=== PATIENT | female | born 1960 | race Caucasian/White ===

== ENCOUNTER → 2017-03-11 | Outpatient (CLI) | payer MEDICARE ==
[~2017-03-11] MED LIST: ADVIL; ALBUTEROL17 GM INH; ALEVE220 M1 PO; BENADRYL PO; CELEBREX PO; DOXEPIN HCL25 MG; FLEXERIL PO; FLONASE; FLONASE 0.05% N16 G1; FLONASE16 GM; IMIPRAM HCL PO; LITE COAT ASPI325 M1 PO; LITHIUM PO; LORTAB 10-5001 EACH PO; METFORMIN HCL500 M2 PO; METOPROLOL SUCC50 MG; METOPROLOL TAR25 MG PO; MOBIC PO; OMEPRAZOLE40 M1 PO; OMEPRAZOLE40 MG PO; PHENERGAN12.5 MG PO; POTASSIUM CHLO10 MEQ PO; PROMETHAZINE12.5 MG PO; REGLAN10 MG PO; SUMATRIPTAN SU100 MG PO; SYNTHROID PO; SYNTHROID137 MCG PO; TIZANIDINE HCL2 MG PO; TRAMADOL HCL50 M2; ULTRAM PO; VITAMIN B650 MG PO; VITAMIN E1000 UNI1 PO; ZANAFLEX
--- NOTE | ~2017-03-11 | US128 ---
[id number] [facility] [address]. [place], [place] [address] [id number] O MR#: [id number] Acc #: [id number] NAME: SONYA PUGH : 1960 SEX: F STUDY DATE/TIME: 03/11/2017 13:24 UNIT: CGUS ROOM: STUDY DESCRIPTION: Thyroid Attending Physician: Sb Barber Jr., M.D. Referring Physician: Sb Barber Jr., M.D. Ordering Physician: Sb Barber Jr., M.D. Primary Care Physician: Sb Barber Jr., M.D. MEDICAL IMAGING REPORT This report is preliminary unless electronic signature is present EXAM Thyroid ultrasound. DATE OF EXAM 03/11/2017 INDICATIONS Palpable area in the left neck just below the ear. This has been present for 3 months. The patient has a history of thyroid cancer. TECHNIQUE Whitaker-scale and color Doppler sonographic images were obtained through the thyroidectomy bed. FINDINGS I do not see any significant residual thyroid parenchyma within the area of concern. The patient is noted to have prominent cervical lymph node measuring 1.1 x 0.8 x 0.3 cm, it is ovoid in shape and has a normal fatty hilum. IMPRESSION Within the area concern, the patient is noted to have a mildly prominent cervical lymph node. Its morphology is not particularly concerning, however, the patient does have a history of thyroid cancer. Further evaluation with CT of the neck, soft tissue with contrast or I-131 scan could be considered. Dictated by... Keisha Escobar M.D. THIS IS AN ELECTRONICALLY VERIFIED REPORT Keisha Escobar M.D. at 03/13/2017 3:03 PM RUTHIE/chandra TD: 03/12/2017 19:10 JOB #: [id number] MEDICAL IMAGING REPORT Page 1 of 1 COPY
== END | disposition home or self-care (01) ==
LOC: CGUS 12:40
DX: R22.1 Localized swelling, mass and lump, neck (principal)
CPT/HCPCS: 76536

== ENCOUNTER → 2017-07-16 | Outpatient (CLI) | payer MEDICARE ==
--- NOTE | ~2017-07-16 | CT114 ---
[facility] A Service of [facility] RADIOLOGY TEXT RESULTS PATIENT: SONYA PUGH LOCATION: [facility] : 56 UNIT #: [id number] AGE: [address]: Tonie Simmons MD SEX: F ORDER DR: [id number] [facility] [address] [place], [place] [address] [id number] O MR#: [id number] [facility] #: [id number] NAME: SONYA PUGH : 1960 SEX: F STUDY DATE/TIME: 07/16/2017 8:25 UNIT: [facility] ROOM: STUDY DESCRIPTION: CT Soft Tissue Neck W Cont Attending Physician: Tonie Simmons M.D. Referring Physician: Tonie Simmons M.D. Ordering Physician: Tonie Simmons M.D. Primary Care Physician: Sb Barber Jr., M.D. MEDICAL IMAGING REPORT This report is preliminary unless electronic signature is present EXAM Soft tissue neck CT with contrast 07/16/2017 PROCEDURE Axial contrast-enhanced soft tissue neck CT with multiplanar reformats. This CT examination was performed with one or more of the following radiation dose reduction techniques: automatic exposure control, adjustment of mA and/or kV according to patient size, and iterative reconstruction. COMPARISON Prior CT 03/02/2014. HISTORY Left submandibular prominent lymph node. History of thyroid cancer. FINDINGS There is no suspicious mass or suspicious adenopathy. Stable small cervical lymph nodes are seen unchanged since the study of 03/02/2014. No new or suspicious adenopathy, mass or inflammatory change is seen. Several small thyroid nodules and/or intrathyroidal lymph nodes are stable when compared to the prior study. The vascular structures appear normal. There is mild spinal degenerative change but no acute bony abnormality. IMPRESSION No suspicious mass, suspicious adenopathy or residual tissue in the thyroid bed. No interval change since 03/02/2014. Dictated by... [facility] A Service [facility] RADIOLOGY TEXT RESULTS PATIENT: SONYA PUGH LOCATION: [facility] : 56 UNIT #: [id number] AGE: [address]: Tonie Simmons MD SEX: F ORDER DR: Murray Restrepo M.D. THIS IS AN ELECTRONICALLY VERIFIED REPORT Murray Restrepo M.D. at 07/18/2017 5:01 PM RIRI/trixie TD: 07/17/2017 06:19 JOB #: [id number] MEDICAL IMAGING REPORT Page 1 of 1 COPY
[2017-07-16 10:01] LABS: POC - CREATININE 0.79 mg/dL (0.44-1.03); POC - GFR >60.0 mL/min (>60)
== END | disposition home or self-care (01) ==
LOC: CNUC 07-11 09:30
PROVIDERS: Internal Medicine Hematology
DX: R22.1 Localized swelling, mass and lump, neck (principal); E06.3 Autoimmune thyroiditis
CPT/HCPCS: 70491; 82565; Q9967